=== PATIENT | male | born 1965 | race Caucasian/White ===

== ENCOUNTER 2017-01-02 06:23 | Inpatient (IN) ==
--- NOTE | 2017-01-02 07:11 | PROVIDER DOCUMENTATION ---
HPI-Male Problem - General Chief Complaint: Groin Pain Stated Complaint: epididymitis Time Seen by Provider: 01/02/17 06:57 Source: patient Allergies/Adverse Reactions: Patient Allergies Allergy/AdvReac Type Severity Reaction Status Date / Time Iodinated Contrast Media - Allergy Unknown Verified 01/02/17 06:46 Oral and [Iodinated Contrast Media - IV Dye] Home Medications: Home Medication List Medication Instructions Recorded Confirmed Last Taken Type Famotidine [Pepcid] 20 mg PO DAILY #30 tablet 07/06/15 07/08/15 Unknown Rx Ketorolac [Toradol] 10 mg PO Q6H PRN PRN #30 tablet 07/06/15 07/08/15 Unknown Rx Sulfamethoxazole/Trimethoprim 1 each PO BID #10 tablet 07/06/15 07/08/15 06:45 Rx [Bactrim Ds Tablet] - History of Present Illness-Male Nature of Presenting Problem: about a week ago, he was seen @ another hospital for scrotal pain. Had U/A, U/S , CBC, cultures for GC/Chamlydia. Was dx with epidymitis, They wished to admit him due to WBC of 25, but he declined, so was given ? abx IV, placed on Cipro, told to F/U with PCP. He felt tired for sev days, so stopped the abx, then felt better. The last 2-3 days, he has been feeling fatigued again. This am, he awoke to L scotal pain again, radiates up into LLQ. Worse with touch, move. Also had fever up to 101, chills. No N/V. No dysuria, no hematuria Location of Complaint: reports: scrotal Radiation: reports: LLQ Quality of Pain: reports: aching Severity in ED: reports: severe Onset/Duration: reports: 1-3 hours ago Timing: reports: still present, constant Context/Activities at Onset: reports: sleep Urinary Symptoms: reports: no symptoms Associated Symptoms: reports: none Associated Symptoms: reports: fatigue, fever/chills Similar Symptoms Previously?: Yes Recently seen or treated by another doctor?: Yes (see HPI) Review of Systems - Adult - REVIEW OF SYSTEMS - ADULT Constitutional: reports: see HPI Eyes: reports: no symptoms reported Ears, Nose, Mouth & Throat: reports: no symptoms reported Cardiovascular: reports: no symptoms reported Respiratory: reports: no symptoms reported Gastrointestinal: reports: see HPI Genitourinary: reports: see HPI Musculoskeletal: reports: no symptoms reported Integumentary: reports: no symptoms reported Neurological: reports: no symptoms reported Psychiatric: reports: no symptoms reported Endocrine: reports: no symptoms reported Hematologic/Lymphatic: reports: no symptoms reported Allergic/Immunologic: reports: no symptoms reported Past History - Adult - PAST MEDICAL HISTORY-ADULT Review of Records: reports: Medications Reviewed Cardiovascular: reports: denies history Respiratory: reports: denies history Gastrointestinal: reports: denies history Obstetrical/Gynecological: reports: denies history Genitourinary: reports: epididymitis Musculoskeletal: reports: denies history Neurological: reports: denies history Psychiatric: reports: denies history Endocrine/Immune: reports: denies history, Diabetes - PRIOR SURGERIES/PROCEDURES Surgical/Procedure History: reports: hernia repair, orthopedic (extremity) (RT hand) - IMMUNIZATION STATUS Childhood Immunizations: See Nurse Assessment Flu Vaccine: See Nurse Assessment - SOCIAL HISTORY Smoking: cigarettes Provider spent 3-5 mins advising pt. on dangers of tobacco.: Discussed manners to quit use, and f/u contacts for add'l counseling. Physical Exam-General - PHYSICAL EXAM-ADULT Initial Vital Signs Reviewed: Yes - CONSTITUTIONAL General Appearance: appears well, alert, no apparent distress - EYES Eyes: PERRL/EOMI, pink conjunctivae - HEAD, EARS, NOSE, MOUTH & THROAT HENMT: normocephalic/atraumatic, moist mucous membranes, normal ENT inspection, pharynx normal - NECK Neck: full range of motion, supple - RESPIRATORY Respiratory: lungs clear, normal breath sounds, no pleuratic chest pain, no respiratory distress, no accessory muscle use - CARDIOVASCULAR Cardiovascular: regular rate, rhythm, no edema, no murmur - GASTROINTESTINAL (ABDOMEN) Abdominal Exam: soft, other (mild tender LLQ) - GENITOURINARY Male Genitalia: circumcised, other (tender L testicle, epidymis) - MUSCULOSKELETAL Back Exam: normal inspection, no CVA tenderness, no vertebral tenderness Extremity: normal range of motion, non-tender, normal inspection - SKIN Integumentary: normal color, normal turgor, warm/dry - NEUROLOGIC Neurologic: uptwister tender II-XII nml as tested, grossly normal, no motor/sensory deficits - PSYCHIATRIC Psych/Mental Status: normal mood/affect, normal thought content, normal thought process, oriented x 3 Progress - PLAN OF CARE/RESULTS Progress/Plan/Lab Results: Vital Signs - 8 hr 01/02/17 06:28 Temperature 97.5 F L Pulse Rate 78 Respiratory Rate 18 Blood Pressure 175/95 O2 Sat by Pulse Oximetry 100 Laboratory Results - last 24 hr 01/02/17 01/02/17 07:48 08:26 WBC 24.03 H RBC 5.21 Hgb 15.7 Hct 46.2 MCV 88.7 MCH 30.1 MCHC 34.0 RDW Std Deviation 12.8 Plt Count 370 MPV 9.5 Immature Gran % (Auto) 0.7 H Neut % (Auto) 77.9 H Lymph % (Auto) 11.2 L [place] % (Auto) 9.0 Eos % (Auto) 1.0 Baso % (Auto) 0.2 Immature Gran # (Auto) 0.16 H Neut # (Auto) 18.70 H Lymph # (Auto) 2.70 [place] # (Auto) 2.17 H Eos # (Auto) 0.24 Baso # (Auto) 0.06 Segmented Neutrophils 86 H Band Neutrophils 2 H Lymphocytes 6 L Monocytes 4 Eosinophils 2 Urine Source CLEAN CATCH Urine Color STRAW Urine Turbidity HAZY Urine pH 7.0 Ur Specific [place] 1.004 Urine Protein TRACE A Ur Glucose (Stick) NEGATIVE Ur Ketones (Stick) NEGATIVE Urine Blood SMALL A Urine Nitrite NEGATIVE Urine Bilirubin NEGATIVE Urobilinogen Dipstick NORMAL Urine Leukocytes LARGE A Urine WBC (Auto) TNTC A Urine RBC (Auto) <10 U Epithel Cells (Auto) <10 Urine Bacteria (Auto) NEGATIVE Urine Crystals Not Reportable Small Round Cells Not Reportable Urine Casts NONE SEEN Urine Yeast-like Cells NONE SEEN Orders Category Date Time Status Nursing [[facility] [place]. [facility] Communication Order] DIRECTED Care 01/02/17 08:34 Active RENAL STONE SEARCH [CT] Stat Exams 01/02/17 08:51 Completed CBC WITH DIFF [HEME] Stat Lab 01/02/17 07:48 Completed URINALYSIS W/POSS RFLX CULT [URINALYSIS] Stat Lab 01/02/17 08:26 Completed URINE CULTURE [RM] Routine Lab 01/02/17 09:06 Received URINE MANUAL MICROSCOPIC [URINALYSIS] Stat Lab 01/02/17 08:26 Completed Result Diagrams: 01/02/17 07:48 - CT/MRI 1 CT Study: Renal Stone Impression: Abnormal CT Results: prox L ureter has a 15 mm long, 8x6 mm tabitha stone - CONSULTS/PCP/HOSPITALIST Notification #1 *Consult/PCP/Hospitalist*: Mario Alberto Denis Time Discussed: 10:43 Consult Disposition: Admit #2 Consult: Tig[place] Time Discussed: 10:50 Consult Disposition: other (will see in hosp) Departure - Departure Date of Disposition Decision: 01/02/17 Time of Disposition Decision: 10:57 DIAGNOSIS: Calculus of proximal left ureter, Urinary tract infection in male Disposition: ADMITTED INPATIENT 09 Certified Medical Emergency: Emergent Condition: Good Referrals and Follow-Ups: Giovani Denis MD [Primary Care Provider] - - Critical Care Note This patient required my direct & personal management of CC.: No
[2017-01-02 08:01] LABS: BASO% 0.2 % (0.0-0.8); EOS# 0.24 X1000 (0.0-0.7); HEMATOCRIT 46.2 % (42.0-52.0); HEMOGLOBIN 15.7 g/dL (14.0-18.0); IMM GRAN# 0.16 X1000 (0.0-0.04); IMM GRAN% 0.7 % (0.0-0.5); LYMPH% 11.2 % (20.5-51.1); MANUAL DIFF NEEDED? YES; MCH 30.1 PG (27-31); MCV 88.7 FL (81-99); MONO# 2.17 X1000 (0.11-0.59); MPV 9.5 FL (7.4-10.4); NEUT% 77.9 % (42.2-75.2); PLT 370 X1000 (130-400); RBC 5.21 XMIL (4.7-6.1)
[2017-01-02 08:37] LABS: URINE SOURCE CLEAN CATCH
[2017-01-02 08:48] LABS: BILIRUBIN URINE NEGATIVE (NEGATIVE); BLOOD URINE SMALL (NEGATIVE); COLOR STRAW; GLUCOSE URINE NEGATIVE (NEGATIVE); LEUKOCYTES URINE LARGE (NEGATIVE); NITRITE URINE NEGATIVE (NEGATIVE); PROTEIN URINE TRACE mg/dL (NEGATIVE); SP GRAVITY URINE 1.004; TURBIDITY URINE HAZY (CLEAR); UROBILINOGEN URINE NORMAL (NORMAL)
[2017-01-02 08:53] LABS: UR EPITHELIAL CELLS <10 /HPF (<10); URINE BACTERIA NEGATIVE /HPF; URINE CULTURE NEEDED? YES; URINE MICRO REVIEW NEEDED? YES; URINE RBC <10 /HPF (<10); URINE WBC TNTC /HPF (<10)
[2017-01-02 09:10] LABS: URINE CASTS NONE SEEN
--- NOTE | 2017-01-02 09:27 | Diag Imaging Result Doc PS360 ---
EXAM: RENAL STONE SEARCH - 01/02/2017 HISTORY: L test pain, hematuria, pyuria TECHNIQUE: Dose reduction protocol COMPARISON: None. FINDINGS: There is an approximately 15 mm in length by 8 x 6 mm in axial dimensions stone in the proximal left ureter. There is associated moderate hydronephrosis on the left. There is an 8 mm stone in the lower left kidney. There is no right renal stone or right hydronephrosis identified. The urinary bladder is mildly distended. There is no evidence of bowel obstruction. The appendix is unremarkable. There is uncomplicated colonic diverticulosis. There is no free air. There are no calcified gallstones seen. There are lumbar spine degenerative changes noted. IMPRESSION: 15 x 8 x 6 mm stone in proximal left ureter. Associated moderate left hydronephrosis. 8 mm stone in lower left kidney. Uncomplicated colonic diverticulosis. Lumbar spine degenerative changes noted. Electronically signed by Chan Valenzuela 01/02/2017 9:24 AM
[2017-01-02 09:54] LABS: BANDS 2 % (0-1); EOS 2 % (1-10); LYMPHS 6 % (21-51); MONO 4 % (1-9)
[2017-01-02] MEDS ORDERED: ROCEPHIN 1 GM/NS 1 GM/50 ML IVPB IV ONE (10:44)
[2017-01-02] MEDS ORDERED: TORADOL IV PRN (11:05)
[2017-01-02] MEDS ORDERED: ZOFRAN IV PRN (11:05)
[2017-01-02] MEDS ORDERED: NS 1,000 ML IV ONE ×2 (11:05→12:39)
[2017-01-02] MEDS ORDERED: MORPHINE IV PRN (12:31)
--- NOTE | 2017-01-02 14:14 | HISTORY AND PHYSICAL ---
CHIEF COMPLAINT: Hematuria and testicular pain with a history of epididymitis. HISTORY OF PRESENT ILLNESS: Mr. Cobb is a patient currently in my practice, age 51, with history of renal stones and 2-week history of testicular pain diagnosed as epididymitis. The patient presents to the ER today with worsening of flank pain, pain on urination, and poor response to the antibiotics provided via urgent care. A CT scan was performed and noted to have a very large stone in the ureter and leukocytosis consistent with infected stone and question of pyelonephritis likely secondary to obstructive stone. ALLERGIES: Patient is allergic to iodinated contrast media. MEDICATIONS: Home medications include famotidine, ketorolac, and Bactrim of which the patient took minimal doses. REVIEW OF SYSTEMS: Twelve point review of systems pertinent for items mentioned in HPI. Patient denies any chest complaints, any cardiac complaints, shortness of breath, any neurologic complaints, psychiatric complaints, or endocrine complaints. PAST MEDICAL HISTORY: Patient did have a past medical history of osteoarthritis and diabetes currently treated with environmental measures, epididymitis and history of nephrolithiasis. SOCIAL HISTORY: Patient is a smoker, approximately 1 pack a day. He is and currently taking care of 2 teenage children. PHYSICAL EXAMINATION: VITAL SIGNS: Temperature 97.5 degrees, pulse 78, respirations 18, blood pressure 175/95, O2 saturation 100% on no O2 therapy. GENERAL: Alert and appropriate in no apparent distress. HEENT: Normocephalic, atraumatic. Membranes are moist. Normal ENT inspection. NECK: Full range of motion. No Brudzinski's sign. RESPIRATORY: Lungs are clear. Normal breath sounds. No respiratory distress. No accessory muscle use noted. CARDIOVASCULAR: Regular rate. No murmurs, gallops, or rubs. No edema present in lower extremities. GENITOURINARY: Exam shows tender left testicle posteriorly consistent with epididymal area. MUSCULOSKELETAL: Mild flank tenderness. Otherwise normal. NEUROLOGIC: Cranial nerves II through XII grossly intact. PSYCHIATRIC: Normal mood, affect, and appearance is consistent with prior evaluations. LABORATORY STUDIES: Labs showed leukocytosis at 24,000 with a neutrophilic shift 77.9. Urine shows a trace protein, small blood, large leukocytes. No casts or yeast noted. Urine culture is collected and pending. RADIOLOGIC STUDIES: CT scan of the renal was performed and showed a 15 x 8 x 6 mm stone in the proximal left ureter with left hydronephrosis and complicated diverticulosis. ASSESSMENT: A 51-year-old male with: 1. Large proximal left ureteral stone with obstruction. 2. Moderate hydronephrosis, left. 3. Leukocytosis, likely secondary to infected stone. 4. Hematuria. 5. Flank pain. PLAN: Patient will be admitted and evaluated for Urology regarding the need for the removal of said stone either prior or after the use of lithotripsy. We will utilize a Rocephin for the antibiotic management and high-volume fluid resuscitation to assist with the production of urine. We will follow the workup of the leukocytosis to ensure there is no sepsis and treat regarding outcomes of both blood and urine cultures. The patient is stable now. We will use morphine for pain and make patient NPO for current procedure. Follow status post evaluation by Urology. We appreciate their assistance regarding this patient. cc: Giovani Denis MD
[2017-01-02] MEDS ORDERED: D5 1/2 NS 500 ML IV SCH (14:19)
[2017-01-02] MEDS ORDERED: VANCOMYCIN IV PER PHARMACY MISC SCH (15:15)
[2017-01-02] MEDS: ZOSYN 3.375 GM/NS 3.375 GM/50 ML IVPB IV SCH ×2 (15:55→22:13)
[2017-01-02] MEDS: NS 1,000 ML IV SCH (17:30)
[2017-01-02] MEDS: VANCOMYCIN 2 GM in NS 500 ML IV SCH (18:31)
[2017-01-03] MEDS: ZOSYN 3.375 GM/NS 3.375 GM/50 ML IVPB IV SCH ×2 (02:17→08:50)
--- NOTE | 2017-01-03 02:24 | CONSULTATION ---
DATE OF CONSULTATION: 01/02/2017 REQUESTING PHYSICIAN: Dr. Dmitri Caicedo in the emergency room, with Dr. Giovani Denis being the admitting physician. REASON FOR CONSULTATION: Left proximal ureteral stone, hydronephrosis, flank pain. HISTORY OF PRESENT ILLNESS: A 51-year-old male with a history of previous urolithiasis in the remote past, which she spontaneously passed over 30 years ago. Presented with severe left abdominal pain radiating to his groin. He had CT abdomen and pelvis renal stone search on 01/02/2017, which revealed a 15 mm left proximal ureteral stone, as well as an 8 mm left renal stone, with moderate hydronephrosis. He denies gross hematuria or dysuria. He does report nausea, as well as fevers up to 101, which have responded to Tylenol and ibuprofen. PAST MEDICAL HISTORY: Urolithiasis. PAST SURGICAL HISTORY: Abdominal hernia repair with mesh. ALLERGIES: Iodine. HOME MEDICATIONS: Vitamin D. SOCIAL HISTORY: He is a smoker, which he has done for 30+ years. Denies alcohol or drug use. FAMILY HISTORY: No malignancies. REVIEW OF SYSTEMS: Review of 12 systems was negative, with the exception of the HPI. PHYSICAL EXAMINATION: Vital Signs: Temperature 98.7 degrees, pulse 77, blood pressure 138/83. General: No acute distress. HEENT: Normocephalic, atraumatic. Cardiovascular: Regular rate and rhythm. Pulmonary: Bilateral breath sounds. Abdomen: Mildly tender to palpation on the left. No involuntary guarding. No peritoneal sounds. Genitourinary: Normal external male genitalia. Lymphatics: No groin lymphadenopathy. Dermatologic: No obvious skin rashes. Neurologic: Alert and oriented x3. Psychiatric: Appropriate mood and affect. PERTINENT LABORATORY DATA: White cell count 24,000, hematocrit of 46. Urinalysis positive for blood, white cells. PERTINENT IMAGES: CT abdomen and pelvis, renal stone search as above. ASSESSMENT: A 51-year-old male, with very large left proximal ureteral stone, associated with hydronephrosis and leukocytosis. I have discussed with the patient that the chance of him passing it spontaneously are pretty much nonexistent. We discussed intervention with left ureteroscopy, laser lithotripsy, stone basket extraction, and ureteral stent. Risks of the procedure, including, but not limited to, bleeding, infection, injury to the bladder, injury to the ureter, injury to adjacent structures, inability to reach the stone, need for staged procedure, delayed problems such as scar tissue, and need for additional interventions were explained. He voiced understanding and wants to proceed. PLAN: 1. NPO after midnight. 2. To the operating room tomorrow for cystoscopy, left ureteroscopy, laser lithotripsy, stone basket extraction, and placement of ureteral stent. Thank you for the consultation. cc: MD Giovani Greenwood MD
[2017-01-03] MEDS: VANCOMYCIN 2 GM in NS 500 ML IV SCH ×2 (03:52→06:46)
[2017-01-03] MEDS ORDERED: DIPRIVAN 1% ONE (06:43)
[2017-01-03 06:57] LABS: MANUAL DIFF NEEDED? NO
[2017-01-03] MEDS ORDERED: ROCEPHIN 1 GM/NS 50 ML IV SCH (07:00)
[2017-01-03 07:06] LABS: BASO% 0.3 % (0.0-0.8); EOS# 0.37 X1000 (0.0-0.7); HEMATOCRIT 43.6 % (42.0-52.0); HEMOGLOBIN 14.7 g/dL (14.0-18.0); IMM GRAN# 0.12 X1000 (0.0-0.04); IMM GRAN% 0.7 % (0.0-0.5); LYMPH# 2.91 X1000 (1.2-3.4); LYMPH% 15.9 % (20.5-51.1); MCH 30.4 PG (27-31); MCHC 33.7 g/dL (33-37); MCV 90.3 FL (81-99); MONO# 2.15 X1000 (0.11-0.59); MONO% 11.7 % (1.7-9.3); MPV 9.8 FL (7.4-10.4); NEUT% 69.4 % (42.2-75.2); PLT 309 X1000 (130-400); RBC 4.83 XMIL (4.7-6.1)
[2017-01-03 07:19] LABS: AGAP 8; ALBUMIN 3.2 g/dL (3.5-5.0); ALKALINE PHOSPHATASE 88 U/L (32-122); BUN 18 mg/dL (8-22); CHLORIDE 105 mmol/L (98-107); COSMO 283; GOT 9 U/L (10-34); GPT 17 U/L (10-44); MAGNESIUM 2.3 mg/dL (1.5-2.7); POTASSIUM 4.6 mmol/L (3.5-5.1); SODIUM 139 mmol/L (136-145); TCO2 26 mmol/L (25-35); TOTAL BILIRUBIN 0.22 mg/dL (0.20-1.00); TOTAL PROTEIN 6.4 g/dL (6.3-8.3)
[2017-01-03] MEDS: NS 1,000 ML IV SCH (08:51)
--- NOTE | 2017-01-03 08:55 | PROGRESS NOTE ---
DATE: 01/03/2017 SUBJECTIVE: Overnight, no major issues or concerns. The patient was maintained n.p.o. and urology evaluated the patient regarding the procedure. The family was noted available at the time, and the patient complained of no overt pain. OBJECTIVE: Vital signs: Temperature 98.4 degrees, pulse 66, respirations 18, blood pressure 114/66, O2 saturation 100% on room air. I's and O's: Minimal output. Unmeasured via void x3. PHYSICAL EXAMINATION: Primarily unchanged. Alert and oriented x3. HEENT: Within normal limits. Good oral dentition. Pupils are equal, round, reactive to light and accommodation. CV: Regular rate. No murmurs, gallops, rubs. Lungs are clear to auscultation anteriorly. Abdomen is nontender. No flank pain noted. No testicular pain noted in the exam. Neurologic: Cranial nerves 2-12 are grossly intact. LABORATORY DATA: Labs this a.m. show WBC down from 24 to 18, neutrophils down to 69.4. Creatinine of 1.0. Microbiology shows blood culture and urine cultures currently pending with no growth at the time of this report. ASSESSMENT AND PLAN: A 51-year-old male with: 1. Left proximal ureteral stone. 2. Hydronephrosis. 3. Leukocytosis. 4. The patient has scheduled today left uteroscopy and will be continued on the Rocephin. Home medications will be restarted status post procedure. Currently, they are unreconciled due to the patient's n.p.o. status. We will analyze the stone and follow the patient first thing in the a.m. Continue pain medication with Toradol IV as necessary and broaden coverage to vancomycin and Zosyn. cc: Giovani Denis MD
--- NOTE | 2017-01-03 09:22 | Diag Imaging Result Doc PS360 ---
EXAM: FLUOROSCOPY CYSTO INDICATION: LT. STONE, LASER STONE, PUT UP LT. STENT COMPARISON: None. FINDINGS: Eight spot fluoroscopic images were provided, which were performed during left ureteral stent placement by Dr. Jose Landeros. There is a calcific density projecting over the region of the lower pole of the left kidney suggesting an intrarenal stone. On the final image, the newly placed left ureteral stent is identified in the expected position. IMPRESSION: As above. Please correlate with live fluoroscopic imaging. Electronically signed by Dmitri Garcia 01/03/2017 9:20 AM
[2017-01-03 09:42] VITALS: BP 121/72
[2017-01-03] MEDS ORDERED: ZOFRAN ONE (09:52)
[2017-01-03] MEDS ORDERED: XYLOCAINE-MPF 2% ONE (09:52)
[2017-01-03] MEDS ORDERED: TORADOL ONE (09:52)
[2017-01-03] MEDS ORDERED: DECADRON ONE (09:52)
--- NOTE | 2017-01-04 06:28 | DISCHARGE SUMMARY ---
ADMISSION DATE: 01/02/2017 DISCHARGE DATE: 01/03/2017 PRIMARY CARE PHYSICIAN: Dr. Giovani Denis. UROLOGY: Dr. Jose Landeros. HISTORY OF PRESENT ILLNESS: Mr. Cobb is a 51-year-old male with a history of prior nephrolithiasis and urolithiasis, who presented with an acute episode of severe left abdominal pain, radiating to the groin. CT shows a pelvic renal stone, approximately 15 mm, as well as an 8 mm left renal stone, with moderate hydronephrosis and overt dysuria, without gross hematuria. PROBLEM LIST ON DISCHARGE: 1. Left proximal ureteral stone, 15 mm. 2. Hydronephrosis. 3. Leukocytosis. 4. History of diabetes mellitus, currently controlled with environmental changes. 5. Gastroesophageal reflux disease. CONSULTATIONS: Dr. Landeros consulted during the case, regarding the need for basket retrieval of said stone, and placement of a ureteral stent. IMAGING DATA: The patient had a renal CT 01/02/2017. It showed a 15 x 8 x 6 mm stone, proximal left ureter, associated moderate left hydronephrosis. LABORATORY DATA: WBC from 24, down to 18.3. Hemoglobin and hematocrit stable. Neutrophils 69.4%. Electrolytes within normal limits. Glucose 158. Calcium high at 11.0. AST and ALT within normal limits. Albumin 3.2. Urine shows small blood and large leukocytes. Microbiology shows blood cultures and urine cultures, no growth to date. MEDICATIONS: Please refer to medication reconciliation order form. Patient will be continued on Keflex and Flomax, along with current medications, and will be followed up in our clinic as quickly as possible. The medications have been transmitted via electronic prescription notification. DISCHARGE PLAN: Patient is discharged to home in stable condition. Will follow up in my office in 1 week. Follow up with Dr. Landeros, per Dr. Landeros's instruction, likely between 1 and 2 weeks for removal of the ureteral stent. The patient has been given precautions regarding any need for return to the clinic, and states understanding. Patient will be discharged home in stable condition. Please call our office with any issues, questions, or concerns. cc: Giovani Denis MD
--- NOTE | 2017-01-05 09:39 | OPERATIVE NOTE ---
PROCEDURE DATE: 01/03/2017 SURGEON: Jose Landeros MD PREOPERATIVE DIAGNOSES: 1. A 15 mm left ureteral stone, 8 mm left renal stone. 2. Flank pain. PRIMARY PROCEDURES: 1. Cystoscopy. 2. Left ureteroscopy with laser lithotripsy. 3. Stone basket extraction. 4. Placement of 6-Bulgarian 24 cm ureteral stent. INDICATIONS FOR PROCEDURE: A 51-year-old male with a remote history of urolithiasis who developed severe left flank pain. He presented to the emergency room and had imaging performed revealing a 15 mm proximal ureteral stone on the left. He was admitted for pain control and hydration. He desires intervention. FINDINGS: A very large stone obstructing the proximal ureter with significant mucosal edema, successful treatment of the ureteral stone, successful stent placement. PROCEDURE IN DETAIL: After obtaining informed consent, the patient was brought to the operating room. Perioperative antibiotics and laryngeal mask anesthesia were administered. He was placed in lithotomy position and prepped and draped in a sterile fashion. A 21-Bulgarian rigid cystoscope was used to gain access to the bladder, which was examined in a systematic fashion. His prostatic urethra had bilobar hypertrophy. The bladder revealed no evidence of mucosal lesions, excessive trabeculations, or diverticula noted. We turned our attention to the left ureteral orifice, which was cannulated with a PTFE wire that was advanced to the level of the left renal pelvis. We then introduced the rigid ureteroscope alongside of the wire and advanced it. The ureter was somewhat tight, and I had to use a second wire to guide it up to the stone. Once the stone was visualized in the proximal ureter, a 365 micron Holmium laser fiber was used to break it up into small fragments with settings of 0.8 joules and 8 hertz. We removed several fragments with Zero nitinol basket. Repeated ureteroscopy revealed no evidence of sizable fragments, no evidence of ureteral injury. Given the size of the stone and degree of mucosal edema, we elected to place a ureteral stent. In a standard fashion, a 6-Bulgarian 24 cm ureteral stent was placed over the wire via the cystoscope with the proximal coil position confirmed fluoroscopically and distal coil directly visualized. The string was left attached to the stent. The bladder was emptied. Cystoscope was removed. He was extubated and taken to PACU for further recovery. ESTIMATED BLOOD LOSS: None. COMPLICATIONS: None. DISPOSITION: To PACU and subsequently home with prescriptions for pain medications and antibiotic per his family doctor. cc: MD Giovani Greenwood MD
== END 2017-01-03 14:17 | disposition home or self-care (01) ==
LOC: ED 06:23 → 3N 06:24
PROVIDERS: ADMIT Family Medicine; ATTEND Family Medicine